=== PATIENT | female | born 1985 | race Caucasian/White ===

== ENCOUNTER 2020-11-07 11:11 | Observation (INO) ==
[2020-11-07] MEDS ORDERED: Isovue-370 500 ML BOTTLE IVP ONE (11:44)
[2020-11-07 13:04] LABS: INR 1.1; Prothrombin Time 12.9 Seconds (9.4-12.1)
[2020-11-07 13:06] LABS: Activated Partial Thrombo Time 44.1 Seconds (26.0-36.0)
[2020-11-07 13:19] LABS: BUN/Creatinine Ratio 16 (6-26); Blood Urea Nitrogen 12 mg/dL (6-20); Calcium 8.8 mg/dL (8.6-10.3); Carbon Dioxide 23 mEq/L (23-29); Chloride 106 mEq/L (98-107); Glucose 87 mg/dL (70-105); Osmolality,Calculated 279 (280-300); Potassium 3.9 mEq/L (3.5-5.1); Sodium 135 mEq/L (136-145); Troponin I < 0.03 ng/mL (< 0.04); eGFR For African Americans > 60 (> 60); eGFR For Non-African Americans > 60 (> 60)
[2020-11-07] MEDS ORDERED: Furosemide 40 MG/4 ML VIAL IVP ONE (13:37)
[2020-11-07] MEDS ORDERED: Naloxone 0.4 MG/ML INJ IVP PRN (14:13)
[2020-11-07] MEDS ORDERED: Ondansetron 4 MG/2 ML VIAL IVP PRN (14:13)
[2020-11-07] MEDS ORDERED: Perflutren Lipid Microsphere 1.3 ML in 0.9 % Sodium Chloride 8.7 ML IVP PRN (14:16)
[2020-11-07] MEDS: *HR* Enoxaparin 120 MG/0.8 ML SYRINGE SQ SCH (18:16)
[2020-11-07] MEDS ORDERED: Acetaminophen 325 MG TABLET PO PRN (22:04)
[2020-11-08 02:08] LABS: BUN/Creatinine Ratio 14 (6-26); Blood Urea Nitrogen 11 mg/dL (6-20); Calcium 9.3 mg/dL (8.6-10.3); Carbon Dioxide 22 mEq/L (23-29); Chloride 100 mEq/L (98-107); Glucose 94 mg/dL (70-105); Magnesium 1.7 mg/dL (1.6-2.6); Osmolality,Calculated 281 (280-300); Phosphorous 3.5 mg/dL (2.7-4.5); Potassium 3.4 mEq/L (3.5-5.1); Sodium 136 mEq/L (136-145); eGFR For African Americans > 60 (> 60); eGFR For Non-African Americans > 60 (> 60)
[2020-11-08 02:13] LABS: Basophils % 0.7 %; Eosinophils # 0.1 K/mcL (0.0-0.6); Eosinophils % 2.3 %; Hematocrit 34.3 % (35.3-44.9); Hemoglobin 11.5 g/dL (11.5-15.4); Immature Granulocytes % 0.3 % (0-4); Immature Platelets 6.5 % (1.1-6.1); Lymphocytes # 0.8 K/mcL (0.6-4.6); Lymphocytes % 27.2 %; Mean Corpuscular HGB Conc 33.5 g/dL (31.6-35.5); Mean Corpuscular Volume 86.4 fL (83.0-100.0); Monocytes # 0.2 K/mcL (0.0-1.3); Monocytes % 4.9 %; Platelet Count 140 K/mcL (140-400); Red Blood Count 3.97 M/mcL (3.82-4.97); Red Cell Distribution Width 12.2 % (11.5-14.5); Segmented Neutrophils % 64.6 %; White Blood Count 3.1 K/mcL (4.3-11.1)
[2020-11-08] MEDS: *HR* Enoxaparin 120 MG/0.8 ML SYRINGE SQ SCH (05:16)
[2020-11-08 07:23] VITALS: BP 148/94
[2020-11-08] MEDS ORDERED: Furosemide 40 MG/4 ML VIAL IVP SCH (09:00)
[2020-11-08] MEDS ORDERED: Perflutren Lipid Microsphere 1.3 ML in 0.9 % Sodium Chloride 8.7 ML IVP PRN (09:49)
== END 2020-11-08 11:51 | disposition home or self-care (01) ==
LOC: 2NNU 11:11 → EMEROOARM 11:11 → 2NNU 17:41 → 3ANU 11-08 05:04
PROVIDERS: ADMIT Internal Medicine; ATTEND Internal Medicine